=== PATIENT | female | born 1945 | race Caucasian/White ===

== ENCOUNTER 2017-02-07 16:44 | Inpatient (IN) | payer OTHER, MEDICARE ==
[2016-10-10 11:19] VITALS: Ht 152.4 cm; Wt 57.2 kg
[~2017-02-07] VITALS: Ht 152.4 cm; Wt 57.2 kg
[~2017-02-07 16:44] MED LIST: AMIO400T5 GT; DOCU-144 GT; ENOX100D4 SQ; FURO40TA5 GT; HYDR-3109 GT; LANS30CA10 GT; MAGN400O4 GT; METO-442 GT; SPIR25TA4 GT; SSREG SUBCUT; TYLL650 GT; [UNRECOGNIZED DRUG - OTHER] SQ
[2017-02-09] VITALS (21 sets, daily range): BP systolic 69–154; BP diastolic 19–108; PULSE 107–153; RESP 18–39; TEMP 96.2–101.2; O2SAT 60–98
[2017-02-09] MEDS ORDERED: ACETAMINOPHEN 650 MG/20.3 ML UDC GT PRN ×2 (00:30)
[2017-02-09] MEDS ORDERED: PANTOPRAZOLE SODIUM 40 MG TAB GT SCH (00:30)
[2017-02-09] MEDS ORDERED: METOCLOPRAMIDE HCL 10 MG TABLET JT PRN (00:30)
[2017-02-09] MEDS ORDERED: ALBUTEROL SULFATE 0.083% 2.5 MG/3 ML VIAL.NEB INH PRN ×2 (00:30→08:45)
--- NOTE | 2017-02-09 00:30 | NUR ---
ADMITTED PT [facility] ADMITTED PT FROM [facility] WITH 2 TRANSPORT PERSONNEL.PT IS A/A/O X4. V/S 130/76,98.0,109,19,96%. NO S/S OF PAIN OR ANY DISTRESS NOTED.PT ON TRACH WITH T BAR WAS NOTED. PT IS ALSO ON F/C WITH 100 CC OF DARK YELLOW URINE. NOTED AMPUTATION TO R TOES.ORIENT WITH THE ROOM, UNIT AND AND USE OF CALL LIGHT. BED IN LOW POSITION WITH CALL LIGHT WITHIN REACH;WILL CONT TO MONITOR.
[2017-02-09] MEDS ORDERED: IPRA0.2S53 NEB ×2 (01:26→01:27)
[2017-02-09] MEDS ORDERED: TYLR650 PR (01:26)
[2017-02-09] MEDS ORDERED: SENN-153 PO (01:26)
[2017-02-09] MEDS ORDERED: ENOX100D3 SQ (01:26)
[2017-02-09] MEDS ORDERED: MINE473O2 GT (01:26)
[2017-02-09] MEDS ORDERED: DILT30TA36 IVP (01:26)
[2017-02-09] MEDS ORDERED: DILT60TA3 GT (01:26)
[2017-02-09] MEDS ORDERED: AMIK250V8 IJ (01:26)
[2017-02-09] MEDS ORDERED: DULR10 RC (01:26)
[2017-02-09] MEDS ORDERED: METO-290 IVP (01:26)
[2017-02-09] MEDS ORDERED: PRO40 IVP (01:27)
[2017-02-09] MEDS ORDERED: NYSCR30 TP (01:27)
[2017-02-09] MEDS ORDERED: CHLO1LIQ2 BC (01:27)
[2017-02-09] MEDS ORDERED: AMIO400T5 GT (01:27)
[2017-02-09] MEDS ORDERED: ONDA4AMP IJ ×2 (01:27→02:16)
[2017-02-09] MEDS ORDERED: LOPE2CAP GT (01:27)
[2017-02-09] MEDS ORDERED: MAGN400O4 GT (01:27)
[2017-02-09] MEDS ORDERED: INSU100V32 SUBCUT (01:27)
[2017-02-09] MEDS ORDERED: ALBU2.5V7 INH (01:27)
[2017-02-09] MEDS ORDERED: METO25TA3 IVP (01:27)
[2017-02-09] MEDS ORDERED: TYLL650 GT (01:27)
--- NOTE | 2017-02-09 01:27 | NUR ---
CONSULTATION PAGED REASON FOR CONSULTATION:SMALL BOWEL OBSTRUCTION WAS CONSULT CALLED?Y PERSON WHO WAS NOTIFIED:[facility] CONSULTING PHYSICIAN:KIA DRIVER TAMALE MAKER SPECIALTY:SURGEON TAMALE MAKER PHONE NUMBER:[phone]
--- NOTE | 2017-02-09 01:34 | NUR ---
CONSULTATION PAGED REASON FOR CONSULTATION:TRACH TO VENT WAS CONSULT CALLED?Y PERSON WHO WAS NOTIFIED:[facility] CONSULTING PHYSICIAN:WESLEY ALLEN SALES ENGINEER SPECIALTY:PULMONARY SALES ENGINEER PHONE NUMBER:[phone]
[2017-02-09] MEDS ORDERED: ONDANSETRON HCL 4 MG/2 ML VIAL IVP PRN (02:30)
[2017-02-09] MEDS ORDERED: D5W 1,000 ML IV SCH (04:30)
--- NOTE | 2017-02-09 05:35 | NUR ---
CONSULTATION PAGED REASON FOR CONSULTATION:NO BM FOR DAYS WAS CONSULT CALLED?Y PERSON WHO WAS NOTIFIED:[facility] CONSULTING PHYSICIAN:PEE CARTWRIGHT ANALYTICS LEAD SPECIALTY:CARDIO ANALYTICS LEAD PHONE NUMBER:[phone]
--- NOTE | 2017-02-09 05:50 | NUR ---
VOMITED PT VOMITED THICK YELLOW FLUID VIA TBAR. SUCTIONED PT, KEEP HOB HI FOWLERS. WILL PAGE DR LEMUS.
[2017-02-09] MEDS ORDERED: DILTIAZEM HCL 30 MG TABLET GT SCH (06:00)
--- NOTE | 2017-02-09 06:00 | NUR ---
PAGED PAGED DOROTHEA MATSON AT [phone] SPOKE WITH JENNY.
--- NOTE | 2017-02-09 06:07 | NUR ---
SPOKE WITH DR LEMUS SPOKE WITH DR LEMUS REGARDING PT VOMITED YELLOW THICK FLUID VIA TBAR. LIS VIA G TUBE PER MD.
--- NOTE | 2017-02-09 06:54 | NUR ---
FINAL NOTES PT IS COMFORTABLY RESTING @ THIS TIME. NO S/S OF PAIN. V/S ARE WNL. ALL NEEDS MET AND ANTICIPATED BY NOC NURSES. BED IN LOW POSITION WITH SIDE RAILS UPX 2 FOR SAFETY. CALL LIGHT WITHIN REACH, ENDORSED.
[2017-02-09] MEDS ORDERED: IPRATROPIUM BROM 0.5 MG/2.5 ML VIAL.NEB (ATROVENT) INH SCH ×2 (07:00→09:00)
--- NOTE | 2017-02-09 08:00 | NUR ---
AM Initial notes Pt aaox4 with no complaints of pain or discomfort. No distress noted. T-bar to trach in place. shrimp header in place. Pt is NPO. Pt has a G-tube and a J-tube. J-tube is clogged. G-tube connected to intermittent suction. Harvey catheter in place. Safety and fall risk precautions enforced with bed alarm armed and close to nurse's station. Encouraged to call for assistance. Call light within reach. Will monitor.
--- NOTE | 2017-02-09 08:20 | NUR ---
Aspirate Pt aspirated yellowish and foul smelling fluid through her mouth and trach while getting breathing treatment. Charge nurse, Laura made aware.
[2017-02-09 08:24] LABS: BASOPHILS # (AUTO) 0.4 K/uL (0.0-0.2); BASOPHILS % (AUTO) 3.2 % (0.0-2.0); EOSINOPHILS # (AUTO) 0.1 K/uL (0.0-0.4); EOSINOPHILS % (AUTO) 0.6 % (0.0-4.0); HEMATOCRIT 39.8 % (36-48); HEMOGLOBIN 12.6 g/dL (12.0-16.0); LYMPHOCYTES # (AUTO) 2.2 K/uL (1.0-5.5); LYMPHOCYTES % (AUTO) 16.7 % (20.5-51.5); MEAN CORPUSCULAR HEMOGLOBIN 27 pg (27-31); MEAN CORPUSCULAR HGB CONC 32 % (32-36); MEAN CORPUSCULAR VOLUME 85 fL (79.0-98.0); MONOCYTES # (AUTO) 0.4 K/uL (0.0-1.0); MONOCYTES % (AUTO) 2.9 % (1.7-9.3); NEUTROPHILS # (AUTO) 10.2 K/uL (1.8-7.7); NEUTROPHILS % (AUTO) 76.6 % (40.0-70.0); PLATELET COUNT (AUTO) 435 K/uL (130-430); RED CELL DISTRIBUTION WIDTH 17.3 % (9.0-15.0); WHITE BLOOD COUNT (AUTO) 13.3 K/uL (4.8-10.8)
[2017-02-09 08:27] LABS: CALCIUM 11.6 mg/dL (8.4-11.0); CREATININE 0.9 mg/dL (0.55-1.30); POTASSIUM 4.8 mmol/L (3.5-5.1)
--- NOTE | 2017-02-09 08:30 | NUR ---
Desaturation Pt O2 sat 60%. Respiratory therapist bagging patient. O2 sat 90% but desaturates. Dr. Sagastume doing rounds and made aware.
[2017-02-09 08:32] LABS: ALBUMIN 2.8 g/dL (3.4-4.8); TOTAL PROTEIN, SERUM 6.8 g/dL (6.4-8.3)
--- NOTE | 2017-02-09 08:35 | NUR ---
Dr. Mitesh MCALLISTER inside room assessing patient. Ordered patient to be transferred to ICU.
[2017-02-09] MEDS ORDERED: IPRATROPIUM BROM 0.5 MG/2.5 ML VIAL.NEB (ATROVENT) INH PRN (08:45)
[2017-02-09 08:48] LABS: BLOOD GAS PH 7.373 (7.350-7.450)
[2017-02-09 08:49] LABS: ABG TOTAL HEMOGLOBIN 13.1 G/dL (12.0-18.0); BLOOD GAS BASE EXCESS -2.7 mmol/L (-3.0-3.0); BLOOD GAS COHb% 0.8 % (0.5-1.5); BLOOD O2Hb% 81.8 % (94.0-97.0)
[2017-02-09] MEDS ORDERED: NYSTATIN 30 GM TOPICAL CREAM TP SCH (09:00)
[2017-02-09] MEDS ORDERED: PANTOPRAZOLE GRANULES PACKET 40 MG GT SCH (09:00)
[2017-02-09] MEDS ORDERED: LACTOBACILLUS RHAMNOSUS GG 1 CAP CAPSULE PO SCH (09:00)
[2017-02-09] MEDS ORDERED: AMIODARONE HCL 200 MG TABLET GT SCH (09:00)
[2017-02-09] MEDS ORDERED: MILK OF MAGNESIA 30 ML UDC GT SCH (09:00)
--- NOTE | 2017-02-09 09:00 | NUR ---
Nutrition Update Carlos Scale 16 noted. Pt admitted for SBO. Diet: N/A BMI: 24.6 kg/m2 RD to follow per nutrition care standards.
--- NOTE | 2017-02-09 09:10 | NUR ---
Transfer Transfer patient to ICU. Respiratory therapist bagging patient while transporting. Report given to ICU nurse, Mary.
--- NOTE | 2017-02-09 09:15 | NUR ---
Transfer to ICU Received report from Rosaura KAMARAN from [facility]. Received pt AAOx1, nonverbal with trach connected to O2. Pt is having SOB with use of abdominal muscles. Skin warm and dry. PICC STEPHANIE intact, patent. Pt has PEG tube with foul smelling drainage connected to low intermittent suction, GT is connected to suction while JT is not functional. Pt able to answer simple questions with head nod or shake. R metatarsal noted with amputation. Harvey in place draining yellow urine. Pt is also on TPN 70 ml/hr and D5W 40 ml/hr. Pt is on contact precautions for CRE sputum. Oriented pt to room and call light. Bed in lowest position. Will continue to monitor.
[2017-02-09] MEDS ORDERED: NS 500 ML IV ONE (09:30)
[2017-02-09] MEDS ORDERED: ACETAMINOPHEN 650 MG SUPP.RECT RC PRN (09:30)
--- NOTE | 2017-02-09 09:30 | NUR ---
MD Katia Shaikh at bedside with pt.
--- NOTE | 2017-02-09 09:30 | NUR ---
Patient Update Pt is unable to answer simple questions, eyes not tracking. Started pt on NS bolus per Dr. Shaikh's orders. Will continue to monitor.
--- NOTE | 2017-02-09 09:36 | NUR ---
peep 5 added to vent settings per dr. mayorga. Addendum: 02/09/17 at 0937 by Iliana Hernandez RT Amended: Links added.
--- NOTE | 2017-02-09 09:40 | NUR ---
Dr. Mason at bedside with pt.
[2017-02-09] MEDS ORDERED: INSULIN REGULAR, HUMAN 100 UNITS/ML, 10 ML VIAL (novoLIN R) SUBCUT PRN (10:00)
[2017-02-09] MEDS ORDERED: *TPN PER PHARMACY XX PRN (10:00)
[2017-02-09] MEDS ORDERED: DEXTROSE 50% JECT 50 ML DISP.SYRIN IVP PRN (10:00)
[2017-02-09] MEDS ORDERED: *LOVENOX 1MG/KG Q12H/PHARMACY XX ONE (10:00)
[2017-02-09] MEDS ORDERED: NACL 0.9% 1,000 ML IV ONE (10:00)
--- NOTE | 2017-02-09 10:00 | NUR ---
EKG done at bedside. Eccho being done at bedside. Currently. Pt still in respiratory distress. Will continue to monitor.
[2017-02-09] MEDS ORDERED: ENOXAPARIN SODIUM 60 MG/0.6 ML SYRINGE SUBCUT ONE (10:30)
[2017-02-09] MEDS ORDERED: PANTOPRAZOLE SODIUM 40 MG/VIAL (PROTONIX) IVP ONE (10:30)
--- NOTE | 2017-02-09 10:30 | NUR ---
Hygiene Pt lethargic, responsive to noxious stimuli. Administered oral care and suctioning. Pt on low intermittent suctioning with GT with yellow output. Administered CHG bath. Will continue to monitor.
--- NOTE | 2017-02-09 10:30 | NUR ---
HARRY NOTES: TRANSFER FROM [facility] POST CODE BLUE PATIENT TRANSFER FROM [facility] POST INTUBATION, WITH ET TO VENT, ON AC - 16, VT - 500, FIO2 - 100%, PEEP - 5 ADMISSION CARE DONE, PLACED COMFORTABLY IN BED, SCOPE SHOWS SINUS TACHYCARDIA, VITALS CHECKED AND RECORDED. Addendum: 02/10/17 at 1427 by Puja Harris RN WRONG PATIENT
[2017-02-09] MEDS ORDERED: VANCOMYCIN HCL 1,000 MG in NS 250 ML IV SCH (11:00)
[2017-02-09] MEDS ORDERED: NACL 0.9% 1,000 ML IV SCH (11:00)
[2017-02-09 11:10] LABS: PROTHROMBIN TIME 10.8 SECS (9.5-12.5)
[2017-02-09 11:14] LABS: ABG TOTAL HEMOGLOBIN 12.4 G/dL (12.0-18.0); BLOOD GAS BASE EXCESS -8.3 mmol/L (-3.0-3.0); BLOOD GAS COHb% 0.4 % (0.5-1.5); BLOOD GAS PH 7.249 (7.350-7.450); BLOOD O2Hb% 92.8 % (94.0-97.0)
[2017-02-09 11:15] LABS: BLOOD GAS HHB 6.4 % (0.0-6.0)
[2017-02-09] MEDS: ALBUTEROL SULFATE 0.083% 2.5 MG/3 ML VIAL.NEB INH SCH ×2 (11:40→15:45)
[2017-02-09] MEDS: IPRATROPIUM BROM 0.5 MG/2.5 ML VIAL.NEB (ATROVENT) INH SCH ×2 (11:40→15:45)
--- NOTE | 2017-02-09 11:50 | NUR ---
ABG RESULTS RELAYED TO DR. HILLIARD, WITH ORDERS CARRIED OUT.
[2017-02-09] MEDS ORDERED: DILTIAZEM HCL 60 MG TABLET GT SCH (12:00)
[2017-02-09] MEDS ORDERED: METOCLOPRAMIDE HCL 10 MG/2 ML VIAL IVP SCH (12:00)
[2017-02-09] MEDS: PIPERACILLIN/TAZO 3.375/DEX-IS 50 ML IV SCH ×2 (12:00→12:30)
[2017-02-09] MEDS ORDERED: SODIUM BICARBONATE 8.4% JECT 50 MEQ/50 ML SYRINGE IVP ONE (12:00)
[2017-02-09] MEDS ORDERED: NOREPINEPHRINE BITARTRATE 4 MG in D5W 246 ML IV PRN (13:30)
--- NOTE | 2017-02-09 14:20 | NUR ---
Levophed Pt noted with poor BP 69/28 despite fluid challenge. Pulses present on extremities. Pt responsive to noxious stimuli. Started pt on levophed 10 mcg/min. Will continue to monitor.
[2017-02-09 14:36] LABS: BLOOD GAS PH 7.241 (7.350-7.450)
[2017-02-09 14:37] LABS: ABG TOTAL HEMOGLOBIN 11.6 G/dL (12.0-18.0); BLOOD GAS BASE EXCESS -6.2 mmol/L (-3.0-3.0); BLOOD GAS HHB 6.7 % (0.0-6.0); BLOOD O2Hb% 92.8 % (94.0-97.0)
--- NOTE | 2017-02-09 15:15 | NUR ---
Levophed BP 82/52, titrate levophed to 12 mcg/min. Will continue to monitor.
--- NOTE | 2017-02-09 16:15 | NUR ---
RN NOTES: CODE LIN PATIENT HAS NO PALPABLE PULSE, ASYSTOLE CPR AND ACLS MEDS GIVEN, DR. WOODARD HERE FOR THE CODE. PATIENT REVIVED AT 182. LEVOPHED DRIP INFUSING AT 12 MCG/MIN Addendum: 02/10/17 at 1425 by Puja Harris RN PATIENT CODE LIN AT 181
--- NOTE | 2017-02-09 17:38 | NUR ---
[address] SANDRA. PT. SAT.93%. RN AWARE. Addendum: 02/09/17 at 1738 by Iliana Hernandez RT Amended: Links added.
[2017-02-09] MEDS ORDERED: [UNRECOGNIZED DRUG - OTHER] IV SCH ×9 (18:00)
[2017-02-09] MEDS ORDERED: FAT EMULSIONS 250 ML IV SCH (18:00)
[2017-02-09] MEDS ORDERED: POTASSIUM CHLORIDE IV SCH ×9 (18:00)
[2017-02-09] MEDS ORDERED: TPN CENTRAL IV SCH ×9 (18:00)
[2017-02-09] MEDS ORDERED: SODIUM CHLORIDE IV SCH ×9 (18:00)
--- NOTE | 2017-02-09 18:15 | NUR ---
Meds Unable to give 1800 medications d/t pt's condition, initiated vivek ashby.
--- NOTE | 2017-02-09 19:00 | NUR ---
RN NOTES : CODE BLUE PATIENT WENT BRADYCARDIA TO ASYSTOLE, CODE BLUE CALLED, CPR DONE, ACLS MEDS GIVEN DR. WOODARD AT BEDSIDE, PATIENT REVIVED @ 1905 FAMILY CALLED AND MADE AWARE.
--- NOTE | 2017-02-09 19:10 | NUR ---
Epinephrine Pt noted with HR 45 with pulse, still not responsive. Administered epinephrine per Dr. Landaverde's orders. Will continue to monitor.
--- NOTE | 2017-02-09 19:25 | NUR ---
MD NOTIFICATION: DR. LEMUS AND DR. EDGAR SPOKE TO DR. LEMUS AND DR. EDGAR, MADE AWARE OF PATIENT CODE BLUE.
--- NOTE | 2017-02-09 19:35 | NUR ---
Epinephrine Pt's HR elevated to 80s post initial administration of epi. Pt's HR decrease to 40s, administered 2nd dose of epi per Dr. Landaverde's orders. Pt noted with ineffective response to epinephrine, initiated code blue.
[2017-02-09] MEDS ORDERED: EPINEPHrine JECT 1 MG/10 ML SYR ONE (19:41)
--- NOTE | 2017-02-09 19:50 | NUR ---
[facility]: Called [facility] to inform them of patient's passing. Spoke with Rufus answered all questions and Rufus gave a referral number of [id number]. Per Rufus, patient is not a candidate.
--- NOTE | 2017-02-09 20:01 | NUR ---
EMERGENCY PHYSICIAN'S OFFICE: Called [employer] Data Specialist's office and notified them of patient's . Spoke with Evelyn, answered all his questions and per Evelyn, this is not a manager creative services's case.
--- NOTE | 2017-02-09 20:08 | NUR ---
FAMILY: Felipe Nguyen, brother and his significant other came and is at bedside. Felipe signed authorization to release [facility]. [facility] [place] [facility].
[2017-02-09] MEDS ORDERED: ENOXAPARIN SODIUM 60 MG/0.6 ML SYRINGE SUBCUT SCH (21:00)
[2017-02-09] MEDS ORDERED: SENNOSIDES 8.6 MG TABLET PO SCH (21:00)
--- NOTE | 2017-02-09 22:30 | NUR ---
[facility]: 2 employees from [facility] here and picked up body of patient.
[2017-02-10] MEDS ORDERED: PANTOPRAZOLE SODIUM 40 MG/VIAL (PROTONIX) IVP SCH (09:00)
[2017-02-10] MEDS ORDERED: AMIODARONE HCL 200 MG TABLET GT SCH (09:00)
[2017-02-13 11:12] LABS: BLOOD GAS PH 7.304 (7.350-7.450)
[2017-02-13 11:13] LABS: ABG TOTAL HEMOGLOBIN 12.1 G/dL (12.0-18.0); BLOOD GAS BASE EXCESS -7.2 mmol/L (-3.0-3.0); BLOOD O2Hb% 95.5 % (94.0-97.0)
== END 2017-02-09 19:39 | disposition expired | DRG 208 ==
LOC: STU 02-08 23:55 → SIC 02-09 09:43
PROVIDERS: ADMIT Internal Medicine Hospice and Palliative Medicine; ATTEND Internal Medicine Hospice and Palliative Medicine
PROC: 5A1935Z Respiratory Ventilation, Less than 24 Consecutive Hours (ICD-10-PCS; principal; 2017-02-09)
DX: J69.0 Pneumonitis due to inhalation of food and vomit (principal); J96.21 Acute and chronic respiratory failure with hypoxia; K65.1 Peritoneal abscess; K56.60 Unspecified intestinal obstruction; R18.8 Other ascites; D68.59 Other primary thrombophilia; E11.52 Type 2 diabetes mellitus with diabetic peripheral angiopathy with gangrene; K55.9 Vascular disorder of intestine, unspecified; I47.1 Supraventricular tachycardia; R13.10 Dysphagia, unspecified; D64.9 Anemia, unspecified; E11.9 Type 2 diabetes mellitus without complications; I27.81 Cor pulmonale (chronic); R79.89 Other specified abnormal findings of blood chemistry; I10 Essential (primary) hypertension; Z86.711 Personal history of pulmonary embolism; Z93.0 Tracheostomy status; Z89.439 Acquired absence of unspecified foot; Z86.718 Personal history of other venous thrombosis and embolism; Z88.8 Allergy status to other drugs, medicaments and biological substances
CPT/HCPCS: 36415; 36600; 71010; 80053; 82803-TC; 82962; 83605; 83880; 85025; 85610-TC; 85730-TC; 87040-TC; 87070-TC; 87081; 87186-TC; 87205-TC; 92950; 93005; 93306; 94002; 94640; C9113; J0171; J1650; J1815; J2405; J2543; J2765; J3370; J3475; J3480; J7030; J7040; J7050; J7060; J7131